=== PATIENT | female | born 1995 | race Caucasian/White ===

== ENCOUNTER 2017-12-25 09:20 | Emergency (ER) | payer OTHER ==
[2017-12-25 09:44] VITALS: BP 114/59
--- NOTE | 2017-12-25 10:26 | UC ---
Hand/Wrist HPI - HPI Summary HPI Summary: Pt presents with left wrist pain since saturday. She tells me that she was snowboarding and fell onto her left outstretched hand/wrist. Had immediate pain , but was able to keep snowboarding. She has an OTC wrist brace on that she says does help her pain. Has been taking ibuprofen with good pain control. Denies numbness, tingling, or hx of injury. - History Of Current Complaint Chief Complaint: UCUpperExtremity Stated Complaint: WRIST INJURY Time Seen by Provider: 12/25/17 10:04 Hx Obtained From: Patient Hx Last Menstrual Period: 12/11/17 Mechanism Of Injury: FOOSH Onset/Duration: Sudden Onset Severity Initially: Severe Severity Currently: Severe Pain Intensity: 9 Pain Scale Used: 0-10 Numeric Character Of Pain: Dull, Aching Aggravating Factor(s): Movement Alleviating Factor(s): Rest - Allergies/Home Medications Allergies/Adverse Reactions: Allergies Allergy/AdvReac Type Severity Reaction Status Date / Time No Known Allergies Allergy Verified 12/25/17 09:38 Home Medications: Home Medications NK [No Home Medications Reported] 12/25/17 [History Confirmed 12/25/17] PMH/Surg Hx/FS Hx/Imm Hx Previously Healthy: Yes - Surgical History Surgical History: None - Family History Known Family History: Positive: Unknown - Social History Occupation: Student Lives: Dormitory/Roommates Alcohol Use: Weekly Substance Use Type: Marijuana Substance Use Comment - Amount & Last Used: today Smoking Status (MU): Never Smoked Tobacco Review of Systems Constitutional: Negative Skin: Negative Respiratory: Negative Cardiovascular: Negative Gastrointestinal: Negative Neurovascular: Negative Musculoskeletal: Other: - Left wrist pain Neurological: Negative Psychological: Negative All Other Systems Reviewed And Are Negative: Yes Physical Exam - Summary Physical Exam Summary: GENERAL: NAD. WDWN. No pain distress. SKIN: No rashes, sores, ulcers, masses, lesions. NECK: Supple. Nontender. No lymphadenopathy. CHEST: CTAB. No r/r/w. No accessory muscle use. Breathing comfortably and in no distress. CV: RRR. Without m/r/g. Pulses intact radial and ulnar. MSK: Moderate TTP over dorsal and volar radial left wrist. FROM, but with pain. Positive snuffbox tenderness. Mild edema. Strength 5/5 including order clerk strength. No obvious bony deformities. NEURO: Alert. Sensations intact hand and all fingers. PSYCH: Age appropriate behavior. Triage Information Reviewed: Yes Vital Signs: Initial Vital Signs Temp 97.5 F 12/25/17 09:38 Pulse 78 12/25/17 09:38 Resp 16 12/25/17 09:38 BP 114/59 12/25/17 09:38 Pulse Ox 99 12/25/17 09:38 Hand/Wrist Course/Dx - Course Course Of Treatment: XR: REPORT AND IMPRESSION: No cortical disruption or suspicious trabecular irregularity to suggest fracture. Normal articular alignment and preserved joint spaces. Mild nonfocal soft tissue swelling. Thumb spica splint given and advised f/u with Orthopedics in 1-2 weeks for recheck. - Differential Dx/Diagnosis Provider Diagnoses: Left wrist sprain Discharge - Discharge Plan Condition: Stable Disposition: HOME Patient Education Materials: Wrist Sprain (ED) Referrals: No Primary Care Phys,NOPCP [Primary Care Provider] - Cathy Campo MD [Medical Doctor] - 1 Week Additional Instructions: If you develop a fever, shortness of breath, chest pain, new or worsening symptoms - please call your PCP or go to the ED. 1) Rest and Ice your wrist daily. Use the thumb splint as much as possible until you see Orthopedics. 2) Please schedule a follow up appointment with Orthopedics at the number below for 1 week for a recheck of your wrist injury 3) May take 600mg ibuprofen every 6-8 hours as needed for pain
--- NOTE | 2017-12-25 11:14 | RAD ---
INDICATION: LEFT wrist pain post fall on outstretched hand. COMPARISON: No relevant prior exams available on the [facility] [place] [facility] for comparison. TECHNIQUE: AP, lateral, and oblique views LEFT wrist. REPORT AND IMPRESSION: No cortical disruption or suspicious trabecular irregularity to suggest fracture. Normal articular alignment and preserved joint spaces. Mild nonfocal soft tissue swelling.
== END 2017-12-25 11:20 | disposition home or self-care (01) ==
LOC: UCEAST 09:20
DX: S63.502A Unspecified sprain of left wrist, initial encounter (principal); W19.XXXA Unspecified fall, initial encounter; Y93.23 Activity, snow (alpine) (downhill) skiing, snowboarding, sledding, tobogganing and snow tubing; Y92.9 Unspecified place or not applicable
CPT/HCPCS: 99212; G0463

== ENCOUNTER 2018-08-26 09:02 | Emergency (ER) | payer OTHER ==
[2018-08-26 11:02] VITALS: BP 120/66
--- NOTE | 2018-08-26 17:31 | ED ---
Upper Extremity Pain - HPI Summary HPI Summary: Patient is a 22-year-old female presenting to the ED with left lateral hand pain after hyperextending her little finger while playing a game. She denies any numbness or tingling. Denies any color or temperature changes. She is able to flex and extend the MCP joint. Denies any pain to the wrist or finger tips otherwise. She is otherwise healthy and voices no other concerns at this time. - History of Current Complaint Chief Complaint: EDExtremityUpper Stated Complaint: LT HAND INJURY Time Seen by Provider: 08/26/18 09:08 Hx Obtained From: Patient Hx Last Menstrual Period: 12/11/17 Mechanism Of Injury: Twisted Onset/Duration: Started Hours Ago Timing: Constant Severity Initially: Moderate Severity Currently: Moderate Pain Location: Hand Character: Aching Aggravating Factor(s): Movement, Lifting, Flexion, Internal/External Rotation Alleviating Factor(s): Rest, Ice Associated Signs & Symptoms: Negative: Swelling, Redness, Bruising Related History: Dominant Hand Right - Risk Factors Non-Orthopedic Risk Factor: Negative DVT Risk Factors: Negative Septic Arthritis Risk Factor: Negative Compartment Syndrome Risk Factors: Pain - Allergies/Home Medications Allergies/Adverse Reactions: Allergies Allergy/AdvReac Type Severity Reaction Status Date / Time No Known Allergies Allergy Verified 08/26/18 09:07 PMH/Surg Hx/FS Hx/Imm Hx Previously Healthy: Yes Endocrine/Hematology History: Denies: Hx Diabetes, Hx Thyroid Disease Cardiovascular History: Denies: Hx Hypertension Respiratory History: Denies: Hx Asthma, Hx Chronic Obstructive Pulmonary Disease (COPD) GI History: Denies: Hx Ulcer - Immunization History Hx Pertussis Vaccination: No Immunizations Up to Date: Yes Infectious Disease History: No Infectious Disease History: Denies: Hx Hepatitis, Hx Human Immunodeficiency Virus (HIV), Traveled Outside the [place] in Last 30 Days - Family History Known Family History: Positive: Unknown Family History: poor historian - Social History Occupation: Unemployed, Student Lives: With Family Alcohol Use: Weekly Hx Substance Use: Yes Substance Use Type: Reports: Marijuana Substance Use Comment - Amount & Last Used: today Smoking Status (MU): Never Smoked Tobacco Review of Systems Constitutional: Negative Negative: Fever, Chills, Fatigue, Skin Diaphoresis Negative: Palpitations, Chest Pain Negative: Shortness Of Breath, Cough Positive: Arthralgia, Myalgia Skin: Negative Neurological: Negative All Other Systems Reviewed And Are Negative: Yes Physical Exam Triage Information Reviewed: Yes Vital Signs On Initial Exam: Initial Vitals Temp Pulse Resp BP Pulse Ox 98.1 F 79 20 134/89 100 08/26/18 09:03 08/26/18 09:03 08/26/18 09:03 08/26/18 09:03 08/26/18 09:03 Vital Signs Reviewed: Yes Appearance: Positive: Well-Nourished Skin: Positive: Warm, Skin Color Reflects Adequate Perfusion Head/Face: Positive: Normal Head/Face Inspection Eyes: Positive: EOMI, NORMA, Conjunctiva Clear Neck: Positive: Supple Respiratory/Lung Sounds: Positive: Clear to Auscultation, Breath Sounds Present Cardiovascular: Positive: RRR Musculoskeletal: Positive: Pain @ - left lateral hand pain Neurological: Positive: Speech Normal Psychiatric: Positive: Affect/Mood Appropriate AVPU Assessment: Alert Diagnostics - Vital Signs Vital Signs Temp Pulse Resp BP Pulse Ox 08/26/18 11:01 98.4 F 64 20 120/66 98 08/26/18 09:03 98.1 F 79 20 134/89 100 - Laboratory Lab Statement: Any lab studies that have been ordered have been reviewed, and results considered in the medical decision making process. Course/Dx - Course Course Of Treatment: During the course of treatment, the patient is evaluated for left hand pain. X-ray obtained which shows: IMPRESSION: FRACTURE AT THE DORSAL BASE OF THE FIFTH METACARPAL. Discussed treatment options with the patient. Patient is given a volar splint with MCPs free. She will follow-up with orthopedics in 3-5 days. - Diagnoses Differential Diagnosis/HQI/PQRI: Positive: Fracture (Closed), Strain, Sprain Provider Diagnoses: Metacarpal bone fracture Discharge - Sign-Out/Discharge Documenting (check all that apply): Patient Departure - Discharge Plan Condition: Stable Disposition: HOME Patient Education Materials: Hand Fracture (ED) Forms: *School Release Referrals: No Primary Care Phys,NOPCP [Primary Care Provider] - Cathy Campo MD [Medical Doctor] - Additional Instructions: Follow up with ortho within 2-3 days if possible Call to make an appt Keep splint applied - Billing Disposition and Condition Condition: STABLE Disposition: Home
== END 2018-08-26 11:02 | disposition home or self-care (01) ==
LOC: ED 09:02
DX: S62.317A Displaced fracture of base of fifth metacarpal bone, left hand, initial encounter for closed fracture (principal); X50.9XXA Other and unspecified overexertion or strenuous movements or postures, initial encounter; Y92.9 Unspecified place or not applicable
CPT/HCPCS: 29125; 99282